=== PATIENT | male | born 1960 | race Caucasian/White ===

== ENCOUNTER → 2021-02-27 01:22 | Outpatient (CLI) | payer OTHER, SELFPAY ==
[2021-02-27 19:16] LABS: SARS-CoV-2 RNA PCR Negative
== END ==
PROVIDERS: PCP Family Medicine; Visit Provider Internal Medicine Gastroenterology
DX: Z01.812 Encounter for preprocedural laboratory examination (principal); Z20.822 Contact with and (suspected) exposure to COVID-19
CPT/HCPCS: C9803; U0003; U0005

== ENCOUNTER 2021-07-02 01:53 | Day surgery (SDC) | payer BC, SELFPAY ==
[2021-02-19 13:12] VITALS: BMI 37.1
[2021-04-28 16:10] VITALS: BMI 45.5
[2021-06-23 11:35] VITALS: BMI 45.5
[2021-07-02 06:19] VITALS: BP 162/100; PULSE 72; RESP 18; TEMP 36; O2SAT 97; BMI 45.8
[2021-07-02] MEDS: LACTATED RINGERS 1,000 ML 150 ML IV CONT (06:26)
--- NOTE | 2021-07-02 07:43 | WPDANESEPPF ---
Anes - Initial Pre Proc Eval Procedure: Operation Date: 07/02/21 07:30 Proposed Procedures p Screening Colonoscopy - Jorge Alberto De Jesus MD Date/Time: 07/02/21 07:43 Surgeon: Jorge Alberto De Jesus MD Pre Op Diagnosis: hx of colon polyps, neoplasm screening Patient Data Age: 61 Gender: M Height: 1.68 m Weight: 128.8 kg Last Vital Signs Temp 96.8 F L 07/02/21 06:19 Pulse 72 07/02/21 06:19 Resp 18 07/02/21 06:19 BP 162/100 H 07/02/21 06:19 Pulse Ox 97 07/02/21 06:19 Allergies Allergy/AdvReac Type Severity Reaction Status Date / Time No Known Allergies Allergy Unknown Verified 07/02/21 06:18 Home Medications Medication Instructions Recorded Confirmed Type rosuvastatin 5 mg tablet 5 mg PO DAILY #90 tablet 11/22/20 04/28/21 Rx albuterol sulfate 90 mcg/actuation 1 inh INHALATION Q4H PRN #6.7 gm 12/03/20 04/28/21 Rx aerosol inhaler aspirin 81 mg PO DAILY 02/19/21 04/28/21 History benazepril 10 mg tablet 10 mg PO DAILY #30 tablet 06/21/21 Rx Patient hx anesthesia problems: none Family hx anesthesia problems: none PMFSH Past Medical History Medical History BMI 45.0-49.9, adult Encounter for wellness examination Hypertension Family History Family History Mother Family history of malignant neoplasm of gastrointestinal tract Grandparent Diabetes mellitus Other Family history of cardiovascular disease Hypertension Social History Social History Smoking status: Never smoker Alcohol intake: current Drinks per week: 10 Substance use: never Substance use type: does not use Living arrangements: with family Gender identity (if verbalized by the patient): Male Spiritual care concerns: No Anes - Eval Final PreProcedure Day of Procedure 07/02/21 07:43 Patient weight: morbidly obese Heart: regular rate and rhythm Lungs: clear to auscultation Airway: Mallampati scale class III Neurological: alert and oriented Last oral intake: >/= 8 hours ASA classification: III Emergent: no Anesthetic plan: proceed Anesthesia type and monitoring: general GIVS and standard monitoring Informed Consent: The patient's anesthetic plan and its attendant risks and benefits were discussed with the patient/family/POA. Questions were solicited and answers provided to the satisfaction of the patient/family/POA.
--- NOTE | 2021-07-02 07:44 | PM.HPGS ---
History of Present Illness History of Present Illness Consent: Risks, benefits, and alternatives have been discussed and questions answered. Patient agrees to proceed with procedure. Chief complaint: hx of colon polyps, neoplasm screening Narrative: Tejas Ramos is a 61 year old male with colon polyp 6 years ago Review of Systems Constitutional: Constitutional: Denies headache(s) and Denies weakness Eyes: Eyes: Denies blurry vision ENT: Reports Normal hearing present, Denies headache(s) and Denies neck pain Cardiovascular: Cardiovascular: Denies chest pain and Denies dyspnea Respiratory: Respiratory: Denies dyspnea Gastrointestinal: Gastrointestinal: Reports no additional gastrointestinal complaints Genitourinary: Genitourinary: Denies dysuria Musculoskeletal: Musculoskeletal: Denies neck pain Integumentary/Breasts: Skin/Breast: Denies dry skin Neurologic: Reports Normal hearing present, Denies headache(s) and Denies weakness Psychiatric: Psychiatric: Denies anxiety Endocrine: Endocrine: Denies change in body appearance Hematologic/Lymphatic: Hematologic/Lymphatic: Denies easy bleeding Allergic/Immunologic: Allergic/Immunologic: Denies urticaria PMFSH Past Medical History Medical History BMI 45.0-49.9, adult Encounter for wellness examination Hypertension Family History Family History Mother Family history of malignant neoplasm of gastrointestinal tract Grandparent Diabetes mellitus Other Family history of cardiovascular disease Hypertension Social History Social History Smoking status: Never smoker Alcohol intake: current Drinks per week: 10 Substance use: never Substance use type: does not use Living arrangements: with family Gender identity (if verbalized by the patient): Male Spiritual care concerns: No Meds Home Medications and Allergies Home Medications Medication Instructions Recorded Confirmed Type rosuvastatin 5 mg tablet 5 mg PO DAILY #90 tablet 11/22/20 04/28/21 Rx albuterol sulfate 90 mcg/actuation 1 inh INHALATION Q4H PRN #6.7 gm 12/03/20 04/28/21 Rx aerosol inhaler aspirin 81 mg PO DAILY 02/19/21 04/28/21 History benazepril 10 mg tablet 10 mg PO DAILY #30 tablet 06/21/21 Rx Allergies Allergy/AdvReac Type Severity Reaction Status Date / Time No Known Allergies Allergy Unknown Verified 07/02/21 06:18 Vital Signs Vital Signs - 24 hr 07/02/21 06:19 Temperature 96.8 F L Pulse Rate 72 Respiratory Rate 18 Blood Pressure 162/100 H Pulse Oximetry 97 Exam Const: General: comfortable and no acute distress HENMT: General nose exam: Normal nares present Eyes: General: appearance normal, both eyes and all related structures Neck: Neck: no JVD Resp: Auscultation: clear to auscultation bilaterally Cardio: Rate: regular rate Rhythm: regular rhythm GI: Inspection: non-distended GI Palp: Yes Soft to palpation Skin: General skin exam: normal color Neuro: General: gait normal Speech: normal speech Extrem: General: normal to inspection Psych: Mental Status: mental status grossly normal Assessment and Plan Assessment and plan (1) Screening for colon cancer: Code(s): Z12.11 - Encounter for screening for malignant neoplasm of colon Status: Acute Assessment and Plan: colonoscopy
[2021-07-02 07:47] VITALS: BP 112/79; PULSE 69; RESP 26; O2SAT 95
[2021-07-02 07:57] VITALS: BP 119/75; PULSE 67; RESP 20; O2SAT 96
[2021-07-02 08:07] VITALS: BP 128/81; PULSE 65; RESP 21; O2SAT 95
== END 2021-07-02 08:20 | disposition home or self-care (01) ==
PROVIDERS: PCP Family Medicine; Visit Provider Internal Medicine Gastroenterology
PROC: 0DJD8ZZ Inspection of Lower Intestinal Tract, Via Natural or Artificial Opening Endoscopic (ICD-10-PCS; CPT 45378; principal; 2021-07-02 07:30)
DX: Z12.11 Encounter for screening for malignant neoplasm of colon (principal); K63.5 Polyp of colon; I10 Essential (primary) hypertension; K57.30 Diverticulosis of large intestine without perforation or abscess without bleeding; K64.8 Other hemorrhoids; Z80.0 Family history of malignant neoplasm of digestive organs
CPT/HCPCS: 45385; 88305; J2704; J7120

== ENCOUNTER 2021-10-03 13:02 | Emergency (ER) | payer BC, SELFPAY ==
--- NOTE | ~2021-10-03 | XR_ITS ---
EXAMINATION: XR chest 2V DATE: 10/03/2021 13:44 INDICATION: Hypoxia. Cough. TECHNIQUE: PA and lateral views of the chest were obtained. COMPARISON: None FINDINGS: Sensitivity mildly decreased by patient body habitus. Mild streaky atelectasis at the lung bases. No other airspace opacities, pulmonary edema, pleural effusion or pneumothorax. Cardiomegaly. Mild thora cic kyphosis with chronic appearing mild anterior wedging of a few mid thoracic vertebral bodies. Mil d to moderate thoracic spondylosis. IMPRESSION: 1. Mild bibasilar atelectasis. 2. Cardiomegaly. Reviewed, dictated and finalized at location A. [facility]
[2021-10-03 13:19] VITALS: BP 156/101; PULSE 111; RESP 24; TEMP 37.3; O2SAT 94
--- NOTE | 2021-10-03 13:26 | ED.URI ---
HPI - URI/Sore Throat General Chief Complaint: Upper Respiratory Infection Stated Complaint: Congestion,Cough,Body Aches Time Seen by Provider: 10/03/21 13:26 Source: patient and RN notes reviewed Mode of arrival: ambulatory Limitations: no limitations History of Present Illness HPI Narrative: 61-year-old male presents to the [facility] with complaints of congestion, cough and body aches x1 week. Reports on Monday that he called his primary care provider was prescribed azithromycin, finished the entire [employer] and is not better. Denies abdominal pain or chest pain. Denies fevers. No nausea vomiting or diarrhea. Related Data Home Medications Medication Instructions Recorded Confirmed aspirin 81 mg PO DAILY 02/19/21 10/03/21 Allergies Allergy/AdvReac Type Severity Reaction Status Date / Time No Known Allergies Allergy Unknown Verified 07/02/21 06:18 Review of Systems Review of Systems: All systems reviewed & are unremarkable except as noted in HPI and below Constitutional: Constitutional: Reports as per HPI, Denies chills, Reports fatigue and Denies fever(s) Eyes: Eyes: Reports no additional eye complaints ENT: Reports system reviewed and no additional complaints, except as documented and Denies sore throat Cardiovascular: Cardiovascular: Denies chest pain Respiratory: Respiratory: Reports as per HPI, Reports chest congestion and Reports cough Gastrointestinal: Gastrointestinal: Reports no additional gastrointestinal complaints, Denies abdominal pain, Denies nausea and Denies vomiting Musculoskeletal: Musculoskeletal: Reports no additional musculoskeletal complaints Integumentary/Breasts: Skin/Breast: Reports system reviewed and no additional complaints, except as docu Neurologic: Reports system reviewed and no additional complaints, except as documented Psychiatric: Psychiatric: Reports no additional psychiatric complaints Allergic/Immunologic: Allergic/Immunologic: Reports no additional allergic/immunologic complaints [facility] Past Medical History Medical History BMI 45.0-49.9, adult Encounter for wellness examination Hypertension Family History Family History Mother Family history of malignant neoplasm of gastrointestinal tract Grandparent Diabetes mellitus Other Family history of cardiovascular disease Hypertension Social History Social History Smoking status: Never smoker Alcohol intake: current Drinks per week: 10 Substance use: never Substance use type: does not use Gender identity (if verbalized by the patient): Male Spiritual care concerns: No Comments At the time of my signature, I reviewed and agree with the nursing past medical, surgical, social, and family history. There is no relevant family history pertinent to the patient complaint. Exam Const: General: healthy appearing, no acute distress and alert Nutritional Appearance: well nourished and obese Orientation/consciousness: patient oriented x3 Limitations: no limitations HENMT: Head: normal to inspection Eyes: Pupils: Equal, round and reactive pupils present Neck: Neck: normal visual inspection and no meningeal signs Chest: Chest palpation & inspection: normal inspection of the chest Resp: Effort & Inspection: normal respiratory effort Auscultation: diminished lung sounds bilateral in the lower lung langley Cardio: Rate: regular rate Rhythm: regular rhythm GI: GI Palp: Yes Soft to palpation and No Tenderness to palpation present (GI) Back/Spine/Pelvis: Back: no CVA tenderness Skin: General skin exam: normal color Rashes: no rashes Wounds: no wounds Neuro: General: patient oriented x3, moves all extremities, no meningeal signs and no focal motor deficits Speech: normal speech Extrem: General: normal to inspection Psych: Appearance: grossly norm
[2021-10-04 19:11] LABS: SARS-CoV-2 RNA PCR Positive
== END 2021-10-03 14:18 | disposition home or self-care (01) ==
PROVIDERS: Emergency Provider Nurse Practitioner; PCP Family Medicine
DX: U07.1 COVID-19 (principal); J40 Bronchitis, not specified as acute or chronic; J98.11 Atelectasis; I10 Essential (primary) hypertension; I51.7 Cardiomegaly
CPT/HCPCS: 71046; 99213; C9803; G0463; U0003; U0005